=== PATIENT | male | born 1990 | race Caucasian/White ===

== ENCOUNTER 2016-09-21 00:05 | Emergency (ER) | payer SELFPAY ==
[~2016-09-21] VITALS: Ht 167.6 cm; Wt 68.1 kg
[2016-09-21 00:11] VITALS: Ht 167.6 cm; Wt 68.1 kg
== END 2016-09-21 02:20 | disposition left against medical advice (07) ==
LOC: FTE 00:05
DX: Z53.21 Procedure and treatment not carried out due to patient leaving prior to being seen by health care provider (principal)